=== PATIENT | female | born 1990 | race Caucasian/White ===

== ENCOUNTER → 2017-02-19 | Outpatient (CLI) | payer OTHER ==
[~2017-02-19] MED LIST: CLARITIN10 M3 PO; COZAAR PO; HYDROCHLOROTH12.5 MG PO; IBUPROFEN PO; SERTRALINE HCL25 M1 PO; VALACYCLOVIR500 MG PO; VITAMIN D1000 UNI2 PO
--- NOTE | ~2017-02-19 | EKG ---
PATIENT: ANKUR THOMAS UNIT #: [id number] Ventricular Rate: 89 BPM Atrial Rate: 89 BPM P-R Interval: 140 ms QRS Duration: 86 ms Q-T Interval: 376 ms QTC Calculation(Bezet): 457 ms P Bellamy: 63 degrees Calculated R Bellamy: 54 degrees Calculated T Bellamy: 27 degrees Diagnosis Line: Normal sinus rhythm with sinus arrhythmia Diagnosis Line: Normal ECG Diagnosis Line: No previous ECGs available Diagnosis Line: Confirmed by RIAN BOWEN MD ([id number]) on 02/19/2017 Diagnosis Line: 8:12:16 PM INTERPRETING MD: ANDRÉS QUIGLEY
== END | disposition home or self-care (01) ==
LOC: CAMB 13:00
DX: Z01.810 Encounter for preprocedural cardiovascular examination (principal)
CPT/HCPCS: 93005

== ENCOUNTER → 2017-02-26 | Day surgery (SDC) | payer OTHER ==
--- NOTE | ~2017-02-26 | OR ---
Unit #: [id number] #: [id number] Patient: ANKUR THOMAS [id number] [address] [address] [id number] O MR#: [id number] NAME: ANKUR THOMAS ROOM: Date of Procedure: 02/26/2017 Admission Date: 02/26/2017 Surgeon: Anthony Gonzales M.D. : 1990 Attending Physician: Anthony Gonzales M.D. Primary Care Physician: Delia Davenport A.P.R.N. OPERATIVE REPORT PREOPERATIVE DIAGNOSIS Chronic cholecystitis. POSTOPERATIVE DIAGNOSIS Chronic cholecystitis. PROCEDURE PERFORMED Laparoscopic cholecystectomy. ASSISTANT Juan Pablo Enriquez M.D. ANESTHESIA General endotracheal anesthesia. ESTIMATED BLOOD LOSS Minimal. IV FLUIDS 800 crystalloid. INDICATIONS FOR PROCEDURE The patient is a 26-year-old lady with persistent right upper quadrant pain. She presents with chronic cholecystitis. DESCRIPTION OF PROCEDURE The patient was taken to the operating theater and placed in supine position. General anesthesia was induced. The abdomen was prepped and draped. A 5-mm Optiview trocar was placed in the right upper quadrant without difficulty. The abdomen was insufflated to 15 mmHg with CO2. Under direct vision, I placed a subxiphoid 10 mm, right lateral 5 mm, umbilical 5 mm. General inspection of the abdomen revealed chronic cholecystitis with distended gallbladder and multiple adhesions. The gallbladder was retracted up over the liver. We dissected the neck of the gallbladder and identified the cystic duct. Its junction with the gallbladder was confirmed. It was thus skeletonized, doubly hemoclipped, and divided. The cystic artery laid immediately posterior. This was skeletonized, doubly hemoclipped, and divided. The gallbladder was removed the gallbladder bed and then delivered via the subxiphoid port. Hemostasis was adequate. I removed the ports under direct vision with no evidence of abdominal hemorrhage. The fascia was closed with 0 Vicryl and skin with 4-0 Vicryl. The patient tolerated the tolerated the procedure Unit #: [id number] #: [id number] Patient: ANKUR THOMAS well and sent to recovery in good condition. Dictated by... Anthony N. Marco Antonio Gonzales TD: 02/26/2017 22:31 JOB #: [id number] OPERATIVE REPORT Page 1 of 1 X Anthony Gonzales MD PROCEDURE OPERATIVE NOTE
[2017-02-26 11:47] LABS: CALCIUM SERUM 8.6 mg/dL (8.4-10.2); CREATININE SERUM 0.5 mg/dL (0.6-1.4); GLOM FILT RATE Estimated 131.7 mL/min (>60); POTASSIUM 3.6 mmol/L (3.5-5.1)
== END | disposition home or self-care (01) ==
LOC: CSUR 07:30
PROVIDERS: Surgery
PROC: 0FT44ZZ Resection of Gallbladder, Percutaneous Endoscopic Approach (ICD-10-PCS; principal; 2017-02-26 11:30)
DX: K80.10 Calculus of gallbladder with chronic cholecystitis without obstruction (principal); I10 Essential (primary) hypertension; E66.01 Morbid (severe) obesity due to excess calories; E55.9 Vitamin D deficiency, unspecified; N92.6 Irregular menstruation, unspecified; M54.5 Low back pain; F41.9 Anxiety disorder, unspecified; J30.9 Allergic rhinitis, unspecified; R42 Dizziness and giddiness; Z68.44 Body mass index [BMI] 60.0-69.9, adult; F17.200 Nicotine dependence, unspecified, uncomplicated; Z79.899 Other long term (current) drug therapy; Z81.1 Family history of alcohol abuse and dependence; Z82.49 Family history of ischemic heart disease and other diseases of the circulatory system; Z83.3 Family history of diabetes mellitus; Z82.5 Family history of asthma and other chronic lower respiratory diseases
CPT/HCPCS: 80048; 84703; 88304; J0131; J0330; J0690; J1100; J1644; J3010